=== PATIENT | female | born 1950 | race Two or more races ===

== ENCOUNTER 2024-04-28 16:24 | Inpatient (IN) | payer MEDICARE, OTHER, SELFPAY ==
[2024-04-28] VITALS (10 sets, daily range): BP systolic 112–163; BP diastolic 56–87; BMI 38.0; BMI 37.7
--- NOTE | 2024-04-28 11:39 | ED.GENMED ---
History of Present Illness
General
Chief Complaint: Change in Mental Status
Source: patient
Exam Limitations: none
Time Seen by Provider: 04/28/24 11:05
Nursing documentation reviewed up to this point in time: agreed with
History of Present Illness
History of Present Illness:
Patient is a 74-year-old female who presents to the ER from home. Daughter drove patient to the ER daughter is translating as patient speaks Grenadian. Daughter reports patient lives alone and called her this morning at work stating that she was
disoriented confused. Daughter reports she was also complain of dizziness. She reports normally patient would never want to come to the hospital. Daughter also notes that patient has had some short-term memory issues and is asking the same
questions. Patient presents awake alert she is awake alert oriented x 3 presently. She follows commands. She has no complaints.
Patient presents with her medicines one of which is meclizine daughter reports that she is not exactly sure if she was fully diagnosed with vertigo.
Review of Systems
Review of Systems
Allergies reviewed?: Yes
Other source history: family
All Other Systems: ROS reviewed and negative except as documented in HPI and ROS
Constitutional: Reports no symptoms
Respiratory: Reports no symptoms
Cardiac: Reports no symptoms
ABD/GI: Reports no symptoms
: Reports no symptoms
Musculoskeletal: Reports no symptoms
Skin: Reports no symptoms
Neurological: Reports other ( pt felt disoriented at home )
Hematologic/Lymphatic: Reports no symptoms
Psychiatric: Reports no symptoms
Phy Exam
General Physical Exam
General Presentation: no apparent distress
General age: appears stated age
General Skin: warm and dry
General Habitus: normal
General Mental: alert
General Hydration: appears well hydrated
Eye Exam
Eye Exam: PERRL, EOMI and other (No nystagmus bilaterally)
Cardiovascular Exam
Cardiovascular Exam: regular rate/rhythm, no murmur and normal peripheral pulses
Pulmonary Exam
Pulmonary Exam: lungs clear and no respiratory distress
Neurological Exam
Neurological Exam: alert, oriented x3, no motor deficits and no sensory deficits
[place] Coma Scale
Eye Opening: Spontaneous
Verbal Response: Oriented
Motor Response: Obeys Commands
GCS Total Score: 15
Musculoskeletal Exam
Musculoskeletal Exam: full ROM
Skin Exam
Skin Exam: normal color and warm/dry
Psychiatric Exam
Psychiatric Exam: normal mood/affect
Course
Orders/Labs/Results
Orders:
Orders
04/28/24 11:44
CT Head W/o Iv Contrast Urgent
Comment:
Reason For Exam: change in ms
04/28/24 11:46
Electrocardiogram (*1) Stat
Reason for Study: Abdominal Pain
Cardiac Monitoring- Treatment ONCE
EKG- Treatment ONCE
IV Insert/Care/Rem.- Treatment PRN
04/28/24 12:12
Complete Blood Count/With Diff Urgent
Comprehensive Metabolic Panel Urgent
Urinalysis Reflex To Culture Urgent
Date Specimen was Collected: 04/28/24
Time Specimen was Collected: 12:04
Urine Microscopic Reflex Cult Urgent
Urine Culture Urgent
CARLI Source: U
Specimen Description:
Date Specimen was Collected: 04/28/24
Time Specimen was Collected: 12:04
04/28/24 14:36
0.9% Sodium Chloride 1000 ml [Nss] 1,000 ml IV BOLUS
04/28/24 14:39
CefTRIAXone [Rocephin] 1,000 mg IV NOW STA
04/28/24 16:05
Admit/Transfer Patient As Directed
Co-Sign Provider:
Level of Care: Inpatient admission
Assign to:: Telemetry
Physician / Group: pasricha/medicine
Diagnosis: ams, uti
Reason for Telemetry: Arrhythmia
Date to Stop Telemetry: 05/01/24
Time to Stop Telemetry: 11:00
Reason for Hospitalization: ams, uti
Expected length of stay greater than two midnights?: Yes
ELOS- Estimated Length of Stay in days: 3
I certify the patient meets the requirements for IP care: Yes
PRN Pain Medication Management As Directed
May give lesser potent ordered pain med per pt: Yes
preference::
Protocol:: Medication orders for pain may be administered in a
manner that supports deferring to patient preference
when the pt is:
- Requesting an ordered lesser potent pain medication.
Least to most potent pain medications are defined
as: acetaminophen < NSAID < tramadol < opioids
(morphine, oxycodone, hydromorphone).
- Requesting a lesser dose of the same medication IF
ORDERED.
- Requesting a less intrusive route of administration
if both routes are prescribed by the provider (PO <
IV).
04/28/24 16:07
Code Status As Directed
Resuscitation Status: Full Code
05/01/24 11:00
DC Protocol for Telemetry ONCE
Abnormal Lab Results
04/28/24
12:12
WBC 13.0 H 10^3/uL
(4.8-10.8)
Absolute Neuts (auto) 9.5 H 10^3/uL
(1.4-6.5)
Absolute Monos (auto) 0.9 H 10^3/uL
(0.1-0.6)
Lymphocytes % 18.7 L %
(20.5-51.1)
BUN 27 H mg/dl
(7-17)
Creatinine 1.3 H mg/dL
(0.6-1.0)
Glucose 112 H mg/dl
(70-99)
Leukocyte Esterase Rfl 2+ A
(Negative)
Urine RBC 3-6 A /HPF
(0-2)
Urine WBC (Reflex) 50-60 A /HPF
(0-5)
Urine Bacteria (Reflex) Few A
(Negative)
04/28/24 12:12
04/28/24 12:12
Vital Signs
Initial and Last Documented VS:
Initial Vital Signs
Temp Pulse Resp BP Pulse Ox
99.4 F 78 18 112/87 98
04/28/24 10:37 04/28/24 10:37 04/28/24 10:37 04/28/24 10:37 04/28/24 10:37
Last Documented Vital Signs
Temp Pulse Resp BP Pulse Ox
99.4 F 75 19 133/57 99
04/28/24 10:37 04/28/24 16:00 04/28/24 16:00 04/28/24 16:00 04/28/24 16:00
MDM/Problems Addressed
Differential Diagnosis Includes:
not limited to: cva , uti
MDM/Problems Addressed:
Patient is a 74-year-old female brought by daughter for evaluation. Daughter reports patient was disoriented today felt little dizzy and seems forgetful. Patient presents awake alert no acute distress no recent trauma she does live alone and
function normally. On exam patient has no neurological deficits head CT negative. Patient does however obvious UTI with 50-60 wbc in urine + renal insufficiency and elevateb wbc of 13.0
With confusion UTI elevated white count will admit for IV antibiotics.
*Radiology
Radiology exam reviewed: radiology read reviewed
*Pulse Oximetry
Patient hypoxic: no
*EKG
Interpreted by ED Provider?: Yes
Interpretation: normal
Comparison EKG: no comparison EKG present
Heart Rate: 68
Rate: normal
Rhythm: sinus
Ischemia: no ischemia
*Critical Care Note
Total Time (30-74mins, 75-104mins- exclusive of procedures): Not Applicable
ED Attending Note
-
Portions of this chart may have been created with voice recognition software.� Occasional wrong word or��sound alike� substitutions may have occurred due to the inherent limitations of voice recognition software.
Discharge Plan
Departure
Patient Disposition: Admit
Date of Disposition: 04/28/24
Time of Disposition: 14:44
Admit to: Med/Surg
Admit to doctor: hospitalist
Presentation/result/management discussed w/ accepting MD/DO: Hospitalist
Patient with high blood pressure during this ER visit?: No
Condition: Fair
Covid-19: Not Applicable
Discharge Problem:
Acute UTI
Interventions
Interventions:
*Risk Screen - Suicide Last Done: 04/28/24 10:37
*General Assessment Last Done: 04/28/24 10:37
*Neglect/Abuse Screening Last Done: 04/28/24 10:37
ED- Fall Risk Assessment Last Done: 04/28/24 12:44
*ED COVID-19 Vaccine History Last Done: 04/28/24 12:44
ED- Pulmonary Assessment Last Done: 04/28/24 12:44
ED- Neurological Assessment Last Done: 04/28/24 12:44
ED- Cardiac Assessment Last Done: 04/28/24 12:44
ED Swallowing Screen Last Done: 04/28/24 12:44
--- NOTE | 2024-04-28 11:41 | EDRN ---
Jackie Sullivan MORTGAGE COUNSELOR in room w/ pt and
[2024-04-28 12:22] LABS: Urine Albumin Negative (Neg - Trace); Urine Bilirubin Negative (Negative); Urine Character Slightly Cloudy (Clear); Urine Color Yellow; Urine Glucose Negative (Negative); Urine Ketone Negative (Negative); Urine Leukocyte 2+ (Negative); Urine Nitrite Negative (Negative); Urine Occult Blood Negative (Negative); Urine Urobilinogen Negative (Neg - 1+)
[2024-04-28 12:35] LABS: % Basophils 0.5 % (0-2); % Eosinophils 0.8 % (0-6); % Immature Granulocytes 0.2 % (0-0.5); % Lymphocytes 18.7 % (20.5-51.1); % Monocytes 6.9 % (1.7-9.3); % Neutrophils 72.9 % (42.2-75.2); Absolute Basophils 0.1 10^3/uL (0-0.2); Absolute Eosinophils 0.1 10^3/uL (0-0.7); Absolute Lymphocytes 2.4 10^3/uL (1.2-3.4); Absolute Monocytes 0.9 10^3/uL (0.1-0.6); Absolute Neutrophils 9.5 10^3/uL (1.4-6.5); Hemoglobin 12.7 g/dL (12.0-16.0); Mean Corp Hgb Conc. 33.4 g/dL (33.0-37.0); Mean Corpuscular Hgb 30.2 pg (27.0-31.0); Mean Corpuscular Volume 90.5 fL (81.0-99.0); Mean Platelet Volume 9.3 fL (7.4-10.4); Nucleated Red Blood Cells % 0 %; Platelet Count 341 10^3/uL (130-400); Red Cell Dist. Width 13.4 % (11.5-14.5)
[2024-04-28 12:39] LABS: ALT (SGPT) 20 U/L (0-35); AST (SGOT) 21 U/L (14-36); Albumin 4.9 g/dl (3.5-5.0); Alkaline Phosphatase 96 U/L (38-126); Blood Urea Nitrogen 27 mg/dl (7-17); Calcium 9.9 mg/dl (8.4-10.2); Carbon Dioxide 26 mmol/L (22-30); Chloride 103 mmol/L (98-107); Estimated Creatinine Clearance 38 ml/min; Glucose 112 mg/dl (70-99); Potassium 4.9 mmol/L (3.5-5.1); Sodium 143 mmol/L (135-145); Total Bilirubin 0.4 mg/dl (0.2-1.3); Total Protein 7.5 g/dl (6.3-8.2); eGFR 42.88
[2024-04-28 12:47] LABS: Urine Bacteria Few (Negative); Urine White Cell 50-60 /HPF (0-5)
[2024-04-28] MEDS: NSS 1000 IV (15:37)
[2024-04-28] MEDS: ROCEPHIN 1000 MG IV (15:37)
--- NOTE | 2024-04-28 16:11 | HPS.HSE ---
Family Physician
-
Family Physician: Dg Rodriguez
Chief Complaint
-
Disoriented
History of Present Illness
74-year-old female with past medical history of diabetes, hyperlipidemia, ?vertigo, now presenting for recent short-term memory issues, and acute disorientation, confusion, dizziness prompted hospital evaluation. Patient otherwise alert awake
oriented x 3 upon evaluation, following commands and responding appropriately. Patient otherwise has no complaints. Patient is Surinamese-speaking although good historian. Temperature 99.4, pulse 75, RR 19, blood pressure 133/57, saturating 99% on
room air. White count 13, creatinine 1.3�unknown baseline, UA positive. CT head unremarkable for acute findings.
Medical History
Past Medical History
Past Medical History: Reports Hypercholesterolemia and NIDDM
Past Surgical History: Reports None
Social History
Tobacco: Non-smoker
Alcohol: None
Drug: None
Living: With Family
Family History
Family History: Not pertinent
Allergies / Home Medications
Allergies reflects when Allergies were last updated in [facility].
Home Medications with original date entered in [facility]
Allergy/Medication List:
Allergies
Allergy/AdvReac Type Severity Reaction Status Date / Time
tetracycline Allergy Unknown Unknown Verified 04/28/24 10:44
Home Medications
acetaminophen 500 mg tablet 500 mg PO Q6HPRN PRN mild pain/fever 04/28/24
ascorbic acid (vitamin C) 500 mg tablet (Vitamin C) 500 mg PO BIDPRN PRN supplement 04/28/24
atorvastatin 40 mg tablet 40 mg PO QPM 04/28/24
celecoxib 200 mg capsule 200 mg PO BIDPRN PRN mild pain 04/28/24
cholecalciferol (vitamin D3) 50 mcg (2,000 unit) capsule (Vitamin D3) 50 mcg PO BIDPRN PRN supplement 04/28/24
cyanocobalamin (vitamin B-12) 1,000 mcg tablet,extended release 1,000 mcg PO DAILYPRN PRN supplement 04/28/24
cyanocobalamin (vitamin B-12) 1,000 mcg/mL injection solution 1,000 mcg IM MONTHLY 04/28/24
folic acid 1 mg tablet 1 mg PO DAILY 04/28/24
levocetirizine 5 mg tablet 5 mg PO HS 04/28/24
loperamide 2 mg capsule 2 mg PO TIDPRN PRN loose stool 04/28/24
meclizine 12.5 mg tablet 12.5 mg PO BID 04/28/24
metformin 500 mg tablet 500 mg PO DAILY 04/28/24
mirabegron 25 mg tablet,extended release 24 hr (Myrbetriq) 25 mg PO DAILY 04/28/24
thiamine HCl (vitamin B1) 100 mg tablet 100 mg PO BIDPRN PRN supplement 04/28/24
Review of Systems
-
History Source: Patient
A 12 point ROS was completed and negative except as noted: Yes
Physical Exam
Vital Signs
Vital Signs
Temp Pulse Resp BP Pulse Ox
99.4 F 81 20 148/61 100
04/28/24 10:37 04/28/24 15:32 04/28/24 15:32 04/28/24 15:32 04/28/24 15:32
Physical Exam
General: Well Developed, Well Nourished and No Apparent Distress
Respiratory: Clear
Cardiac: S1/S2
GI: Non Tender
Musculoskeletal: No Clubbing
Skin: Warm and Dry
Neuro: Awake, Alert, Oriented and AO x 3
Hematologic/Lymphatic: No Lymphadenopathy
Psych: Calm
Laboratory Results
-
04/28/24 12:12
04/28/24 12:12
Laboratory Results
Total Bilirubin 0.4 mg/dl (0.2-1.3) 04/28/24 12:12
AST 21 U/L (14-36) 09/27/24 12:12
ALT 20 U/L (0-35) 04/28/24 12:12
Alkaline Phosphatase 96 U/L (38-126) 04/28/24 12:12
Data Reviewed
-
CT Scan: Image Personally Visualized and interpreted and Report Reviewed by me
Lab Data: Labs Reviewed by me
Impression/Plan
-
IMPRESSION:
74-year-old female with past medical history of diabetes, hyperlipidemia, ?vertigo, now presenting for recent short-term memory issues, and acute disorientation, confusion, dizziness prompted hospital evaluation foudn to have UTI
PLAN:
#UTI
#Sepsis in setting of organ dysfunction�metabolic encephalopathy, elevated white count, respiratory rate, source
� Continue ceftriaxone
�follow cultures
�Follow fever curve, white count
#Acute metabolic encephalopathy, intermittent
� Most likely secondary to UTI
� Treat UTI monitor
� PT OT
#DANILO versus CKD
� Monitor with resuscitation
� Unknown baseline
#Hyperlipidemia
� Continue statin
#Diabetes
� Hold metformin
� Insulin sliding scale
#DVT prophylaxis
� HSQ
--- NOTE | 2024-04-28 17:01 | EDRN ---
Bed changed per Elza RN on 4th floor E as pt has some disorietation ICT SECURITY SPECIALIST. Pt will not have family member staying w/ her for translation so does not need private room.
[2024-04-28 18:39] LABS: Glucose - Point of Care 105 mg/dl (70-99)
[2024-04-28] MEDS: LR 1000 IV (18:42)
[2024-04-28] MEDS: LIPITOR 40 MG PO (18:42)
[2024-04-28 18:59] LABS: Lactic Acid 1.6 mmol/L (0.7-2.0)
[2024-04-28] MEDS: ANTIVERT 12.5 MG PO (19:43)
[2024-04-28 21:46] LABS: Glucose - Point of Care 128 mg/dl (70-99)
[2024-04-29] VITALS (9 sets, daily range): BP systolic 139–176; BP diastolic 61–82; PULSE 80
[2024-04-29 06:58] LABS: Hematocrit 32.6 % (37.0-47.0); Hemoglobin 11.2 g/dL (12.0-16.0); Mean Corp Hgb Conc. 34.4 g/dL (33.0-37.0); Mean Corpuscular Hgb 30.4 pg (27.0-31.0); Mean Corpuscular Volume 88.3 fL (81.0-99.0); Mean Platelet Volume 9.4 fL (7.4-10.4); Platelet Count 284 10^3/uL (130-400); Red Blood Cell Count 3.69 10^6/uL (4.20-5.40); Red Cell Dist. Width 13.2 % (11.5-14.5); White Blood Cell Count 9.8 10^3/uL (4.8-10.8)
[2024-04-29 07:50] LABS: ALT (SGPT) 19 U/L (0-35); AST (SGOT) 22 U/L (14-36); Albumin 4.1 g/dl (3.5-5.0); Alkaline Phosphatase 93 U/L (38-126); Blood Urea Nitrogen 25 mg/dl (7-17); Calcium 9.8 mg/dl (8.4-10.2); Carbon Dioxide 24 mmol/L (22-30); Chloride 107 mmol/L (98-107); Estimated Creatinine Clearance 41 ml/min; Glucose 104 mg/dl (70-99); Sodium 141 mmol/L (135-145); Total Bilirubin 0.6 mg/dl (0.2-1.3); Total Protein 6.3 g/dl (6.3-8.2); eGFR 47.21
[2024-04-29 08:10] LABS: TSH 1.65 uIU/ml (0.47-4.68)
[2024-04-29 08:59] LABS: Glucose - Point of Care 110 mg/dl (70-99)
[2024-04-29] MEDS: FOLVITE 1 MG PO (09:17)
[2024-04-29] MEDS: ANTIVERT 12.5 MG PO ×2 (09:18→19:17)
[2024-04-29 12:08] LABS: Glucose - Point of Care 118 mg/dl (70-99)
--- NOTE | 2024-04-29 13:14 | W.PN.HOSP.TC ---
Today's Communication/Plan
-
f/u urine cultures
abx
Assessment / Plan
Assessment / Plan
Physical Exam
General: Well Developed, Well Nourished and No Apparent Distress
Respiratory: Clear
Cardiac: S1/S2
GI: Non Tender
Musculoskeletal: No Clubbing
Skin: Warm and Dry
Neuro: Awake, Alert, Oriented and AO x 3
Hematologic/Lymphatic: No Lymphadenopathy
Psych: Calm
74-year-old female with past medical history of diabetes, hyperlipidemia, ?vertigo, now presenting for recent short-term memory issues, and acute disorientation, confusion, dizziness prompted hospital evaluation found to have UTI
PLAN:
#UTI
#Sepsis in setting of organ dysfunction�metabolic encephalopathy, elevated white count, respiratory rate, source - improving
� Continue ceftriaxone
�follow cultures, GNB
�Follow fever curve, white count
#Acute metabolic encephalopathy, intermittent
� Most likely secondary to UTI
� Treat UTI monitor
� PT OT
#DANILO versus CKD
� Monitor with resuscitation
� Unknown baseline
#Hyperlipidemia
� Continue statin
#Diabetes
� Hold metformin
� Insulin sliding scale
#DVT prophylaxis
� HSQ
Anticipated Discharge: Within 24 hours
Subjective/Interval History
-
Date of Service: April 29, 2024
No acute events overnight, pleasant mood
Objective Data
-
Labs:
Laboratory Results
04/29/24
06:01
WBC 9.8
Hgb 11.2 L
Hct 32.6 L
Plt Count 284
Sodium 141
Potassium 5.0
Chloride 107
Carbon Dioxide 24
BUN 25 H
Creatinine 1.2 H
Glucose 104 H
Calcium 9.8
Total Bilirubin 0.6
AST 22
ALT 19
Alkaline Phosphatase 93
Vital Signs:
Vital Signs
Temp Pulse Resp BP Pulse Ox
99.1 F 82 24 156/61 97
04/29/24 11:34 04/29/24 11:34 04/29/24 11:34 04/29/24 11:34 04/29/24 11:34
I&O
04/28/24 04/29/24 04/30/24
06:59 06:59 06:59
Intake Total 1000 / 1000
Balance 1000 / 1000
Review of Systems
-
History Source: Patient
All other systems: Not reviewed unless documented
Data Reviewed
-
CT Scan: Image personally visualized and interpreted and Report Reviewed by me
Labs: Labs Reviewed by me
[2024-04-29] MEDS: STERILE WATER FOR INJECTION 10 ML IV (15:53)
[2024-04-29] MEDS: ROCEPHIN 1000 MG IV (15:53)
[2024-04-29] MEDS: TYLENOL 500 MG PO (16:37)
[2024-04-29 16:40] LABS: Glucose - Point of Care 178 mg/dl (70-99)
[2024-04-29] MEDS: LIPITOR 40 MG PO (17:32)
[2024-04-29] MEDS: IMODIUM 2 MG PO ×2 (18:19→19:17)
[2024-04-29 21:13] LABS: Glucose - Point of Care 114 mg/dl (70-99)
--- NOTE | 2024-04-29 22:30 | PTCARENOTE ---
pt with episode of confusion tonight, despite being oriented earlier and all throughout day. pt called daughter stating she didn't know where she was, or 'what she was supposed to be doing'. Assisted pt to bathroom, reoriented and now back to bed,
resting comfortably. Pt did state she felt confused earlier, but feeling better now.
[2024-04-30 03:22] VITALS: BP 158/83
[2024-04-30 07:28] LABS: Glucose - Point of Care 108 mg/dl (70-99)
[2024-04-30 07:30] VITALS: BP 140/59
[2024-04-30] MEDS: FOLVITE 1 MG PO (07:49)
[2024-04-30] MEDS: ANTIVERT 12.5 MG PO (07:49)
[2024-04-30 08:20] LABS: Hematocrit 32.8 % (37.0-47.0); Mean Corp Hgb Conc. 33.5 g/dL (33.0-37.0); Mean Corpuscular Hgb 29.1 pg (27.0-31.0); Mean Corpuscular Volume 86.8 fL (81.0-99.0); Mean Platelet Volume 9.4 fL (7.4-10.4); Platelet Count 279 10^3/uL (130-400); Red Blood Cell Count 3.78 10^6/uL (4.20-5.40); Red Cell Dist. Width 13.3 % (11.5-14.5)
[2024-04-30 08:49] LABS: ALT (SGPT) 17 U/L (0-35); AST (SGOT) 21 U/L (14-36); Albumin 4.2 g/dl (3.5-5.0); Alkaline Phosphatase 87 U/L (38-126); Blood Urea Nitrogen 30 mg/dl (7-17); Calcium 9.5 mg/dl (8.4-10.2); Carbon Dioxide 24 mmol/L (22-30); Chloride 105 mmol/L (98-107); Estimated Creatinine Clearance 41 ml/min; Glucose 108 mg/dl (70-99); Potassium 4.6 mmol/L (3.5-5.1); Sodium 142 mmol/L (135-145); Total Bilirubin 0.6 mg/dl (0.2-1.3); Total Protein 6.5 g/dl (6.3-8.2); eGFR 47.21
[2024-04-30 11:15] VITALS: BP 140/56
[2024-04-30 12:11] LABS: Glucose - Point of Care 137 mg/dl (70-99)
--- NOTE | 2024-04-30 12:15 | W.PN.HOSP.TC ---
Addendum entered and electronically signed by Sunil Chapman MD 04/30/24 15:16:
[id number]
Original Note:
Today's Communication/Plan
-
switch to cefdinir to complete 7 day course abx
f/u renal function outpatient
F/u with pcp +/- neuropsych if needed outpatient
Assessment / Plan
Assessment / Plan
Physical Exam
General: Well Developed, Well Nourished and No Apparent Distress
Respiratory: Clear
Cardiac: S1/S2
GI: Non Tender
Musculoskeletal: No Clubbing
Skin: Warm and Dry
Neuro: Awake, Alert, Oriented and AO x 3
Hematologic/Lymphatic: No Lymphadenopathy
Psych: Calm
74-year-old female with past medical history of diabetes, hyperlipidemia, ?vertigo, now presenting for recent short-term memory issues, and acute disorientation, confusion, dizziness prompted hospital evaluation found to have UTI
PLAN:
#UTI
#Sepsis in setting of organ dysfunction�metabolic encephalopathy, elevated white count, respiratory rate, source - improving
� Klebsiella pneumoniae
� ceftriaxone transition to cefdinir to complete total 7-day course of antibiotics
#Acute metabolic encephalopathy, intermittent
#Delirium
� AMS - Most likely secondary to UTI - appears to have improved although has component of delirium with being in the hospital and UTI
� Treat UTI
-IF continued AMS - f/u outpatient PCP/neuropsych for further eval; no focal motor sensory loss
� PT OT
#CKD
� Monitor with resuscitation
� Unknown baseline
-no changes- f/u bmp in 3-5 days
#Hyperlipidemia
� Continue statin
#Diabetes
� Hold metformin
� Insulin sliding scale
#DVT prophylaxis
� HSQ
More than 30 minutes spent in discharge including
Final examination of the patient
Summarizing hospital stay
Instructions for continuing care to all relevant caregivers
Preparation of discharge records, prescriptions, and referral forms
Total time spent (35 in minutes):
Anticipated Discharge: Within 24 hours
Subjective/Interval History
-
Date of Service: April 30, 2024
No acute events overnight
Objective Data
-
Labs:
Laboratory Results
04/30/24
07:10
WBC 9.0
Hgb 11.0 L
Hct 32.8 L
Plt Count 279
Sodium 142
Potassium 4.6
Chloride 105
Carbon Dioxide 24
BUN 30 H
Creatinine 1.2 H
Glucose 108 H
Calcium 9.5
Total Bilirubin 0.6
AST 21
ALT 17
Alkaline Phosphatase 87
Vital Signs:
Vital Signs
Temp Pulse Resp BP Pulse Ox
97.8 F 54 16 140/56 96
04/30/24 11:15 04/30/24 11:15 04/30/24 11:15 04/30/24 11:15 04/30/24 11:15
I&O
04/29/24 04/30/24 05/01/24
06:59 06:59 06:59
Intake Total 1000 / 1000 800 / 800
Balance 1000 / 1000 800 / 800
Review of Systems
-
History Source: Patient
All other systems: Not reviewed unless documented
Data Reviewed
-
CT Scan: Image personally visualized and interpreted and Report Reviewed by me
Labs: Labs Reviewed by me
--- NOTE | 2024-04-30 12:20 | W.DS.TRANS ---
DC Summary - Clinical Project Coordinator
-
Discharge Instructions:
Discharge Diagnosis/Procedures #UTI
#Sepsis in setting of organ dysfunction
Diet Low Cholesterol,Low Fat
Activity As tolerated
Blood Work bmp in 3-5 days with pcp
Instructions:
Stand-Alone Forms:
Changes to Home Medications: Yes
Discharge Medications:
DC Medications w/original date entered in [facility]
acetaminophen 500 mg tablet 500 mg PO Q6HPRN PRN mild pain/fever 04/28/24
ascorbic acid (vitamin C) 500 mg tablet (Vitamin C) 500 mg PO BIDPRN PRN supplement 04/28/24
atorvastatin 40 mg tablet 40 mg PO QPM High Cholesterol 04/28/24
celecoxib 200 mg capsule 200 mg PO BIDPRN PRN mild pain 04/28/24
cholecalciferol (vitamin D3) 50 mcg (2,000 unit) capsule (Vitamin D3) 50 mcg PO BIDPRN PRN supplement 04/28/24
cyanocobalamin (vitamin B-12) 1,000 mcg tablet,extended release 1,000 mcg PO DAILYPRN PRN supplement 04/28/24
cyanocobalamin (vitamin B-12) 1,000 mcg/mL injection solution 1,000 mcg IM MONTHLY Supplement 04/28/24
folic acid 1 mg tablet 1 mg PO DAILY Supplement 04/28/24
levocetirizine 5 mg tablet 5 mg PO HS Allergies 04/28/24
loperamide 2 mg capsule 2 mg PO TIDPRN PRN loose stool 04/28/24
meclizine 12.5 mg tablet 12.5 mg PO BID nausea/vertigo 04/28/24
metformin 500 mg tablet 500 mg PO DAILY Diabetes 04/28/24
mirabegron 25 mg tablet,extended release 24 hr (Myrbetriq) 25 mg PO DAILY Urinary Issue 04/28/24
thiamine HCl (vitamin B1) 100 mg tablet 100 mg PO BIDPRN PRN supplement 04/28/24
cefdinir 300 mg capsule 300 mg PO Q12H 6 days #12 caps 04/30/24
Home Medication Changes
cefdinir 300 mg capsule 300 mg PO Q12H 6 days #12 caps 04/30/24
Pending Results: No
[2024-04-30] MEDS: LR 1000 IV (12:46)
[2024-04-30] MEDS: ROCEPHIN 1000 MG IV (15:04)
[2024-04-30] MEDS: STERILE WATER FOR INJECTION 10 ML IV (15:05)
--- NOTE | 2024-04-30 15:10 | CM ---
Addendum entered by Leona Arias 05/02/24 10:06:
CM contacted by Blanca's daughter this AM who advised that the home care agency did not receive the referral. I sent the referral via fax [facility] Fax completed successfully.
Original Note:
Blanca lives in [place] community in a first floor apartment, no steps to enter. She is ind with self care and walking with walker to dining room, sometimes meals in room.
Per daughter, Blanca has a caregiver 12 hours/day, 7days/wk - assists with driving, cooking, cleaning, and laundry through the [facility] program.
Skilled Home Care recommended by PT and OT. Skilled Home Care recommended by PT and OT. Pt's daughter has requested a referral to [facility] Referral sent via [facility].
Plan: Discharge to home with caregiver as above as well as Skilled Home Care services via [facility]. Fax Unavailable due to the office being closed on the weekend.
PCP: Dg Rodriguez
Pharmacy: [facility]
[2024-04-30 16:04] LABS: Blood Urea Nitrogen 30 mg/dl (7-17); Calcium 9.7 mg/dl (8.4-10.2); Carbon Dioxide 24 mmol/L (22-30); Chloride 103 mmol/L (98-107); Estimated Creatinine Clearance 45 ml/min; Glucose 192 mg/dl (70-99); Potassium 4.2 mmol/L (3.5-5.1); Sodium 143 mmol/L (135-145)
[2024-04-30 16:05] VITALS: BP 136/62
== END 2024-04-30 16:42 | disposition home health service (06) | DRG 871 ==
LOC: 4 EAST ACU 16:24
PROVIDERS: Nurse Practitioner; ADMITTING PHYSICIAN Internal Medicine; EMERGENCY PHYSICIAN Emergency Medicine; FAMILY PHYSICIAN Internal Medicine
DX: A41.59 Other Gram-negative sepsis (principal); G93.41 Metabolic encephalopathy; N39.0 Urinary tract infection, site not specified; E11.22 Type 2 diabetes mellitus with diabetic chronic kidney disease; N18.9 Chronic kidney disease, unspecified; E78.00 Pure hypercholesterolemia, unspecified; R65.20 Severe sepsis without septic shock; Z79.84 Long term (current) use of oral hypoglycemic drugs; Z88.1 Allergy status to other antibiotic agents
CPT/HCPCS: 70450; 80048; 80053; 81003; 81015; 82962; 83605; 83735; 84443; 85025; 85027; 87040; 87077; 87086; 87186; 93005; 96361; 96374; 97161; 97166; 99285